=== PATIENT | female | born 1945 | race Caucasian/White ===

== ENCOUNTER 2018-04-16 16:24 | Observation (INO) ==
[2018-04-16] MEDS ORDERED: Bisacodyl 10 MG Supp RECTAL PRN (19:01)
[2018-04-16] MEDS ORDERED: Acetaminophen 325 MG Tablet PO PRN (19:01)
[2018-04-16] MEDS: MethylPREDNISolone Sod Succinate Inj 40 MG/ML Vial IV.PUSH SCH (22:54)
[2018-04-17] MEDS: MethylPREDNISolone Sod Succinate Inj 40 MG/ML Vial IV.PUSH SCH ×4 (01:35→20:15)
[2018-04-17] MEDS ORDERED: Dextrose 50% in Water 50 ML Vial IV.PUSH PRN (05:33)
--- NOTE | 2018-04-17 08:06 | P.HP ---
History of Present Illness Primary Care Physician: UNKNOWN Chief Complaint: chest pain and shortness of breath History of Present Illness: This is a pleasant 72-year-old female patient with a known medical history of diabetes and asthma who presented to the ED with complaints of worsening shortness of breath, wheezing and left-sided chest pain. Patient does not speak [place], son at bedside and assisting with translating, denies need for any translation service. Patient states that over the last week she has been increasing shortness of breath with wheezing, she does have a history of asthma , uses her Ventolin inhaler which did not provide relief of the shortness of breath over the course of the week. She states that 3 days ago she noticed some left-sided chest pain that was characterized as pressure in nature that radiates down her left arm and shoulder. She also admits to some palpitations. She does admit to subjective fevers at home although did not check her temperature. She denies any abdominal pain, nausea, vomiting, diarrhea or dysuria. She denies any significant family medical history of cardiovascular disease. She denies any tobacco abuse. She does have a history of diabetes and on metformin at home. Patient is unaware of when her last stress test was was roughly 5 years ago. At the time of assessment patient's chest pain has improved. ACS ruled out with serial EKGs and serial troponins. Will undergo stress test today. Breathing much improved on 2 L nasal cannula at the present time. - Diagnosis (1) Shortness of breath (2) Chest pain (3) Asthma exacerbation Review of Systems All other systems reviewed negative except as stated in HPI PMFSH - History History Provided By: Patient - Medical History Medical History: Medical History (Last Reviewed 04/17/18 @ 11:18 by Andree Orellana) Asthma Diabetes Hypertension - Surgical History Surgical History: Surgical History (Last Reviewed 04/17/18 @ 11:18 by Andree Orellana) History of cholecystectomy Previous back surgery - Family History Family History: Family History (Last Updated 04/17/18 @ 11:18 by Andree Orellana) Other Family history non-contributory - Social History I have reviewed the patient's Social History: Yes - Tobacco History Second Hand Smoke Exposure: No Tobacco Use In Past 30 Days: No Smoking Status: Never smoker - Alcohol History How Often Do You Have a Drink Containing Alcohol: Never - Substance Use History Substance History: No History of Abuse - Travel History Recent Travel in the [place] Within the Last 8 Weeks: No Recent Travel Out of the Country Within the Last 8 Weeks: No Medications and Allergies Active Medications: Active Medications Acetaminophen (Tylenol) 650 mg PO Q4H PRN PRN Reason: Temp > 100.4 Last Admin: 04/17/18 06:51 Dose: 650 mg Al Hydroxide/Mg Hydroxide (Milk Of Magnesia Liq) 30 ml PO Q12H PRN PRN Reason: Mild Constipation Albuterol (Duoneb Neb (Gera)) 1 ampul NEB Q6HR WHILE AWAKE NEB GERA Last Admin: 04/17/18 07:31 Dose: 1 ampul Albuterol (Duoneb Neb (Prn)) 1 ampul NEB Q2HR NEB PRN PRN Reason: SHORTNESS OF BREATH Last Admin: 04/17/18 01:59 Dose: 1 ampul Bisacodyl (Dulcolax Supp) 10 mg RECTAL DAILY PRN PRN Reason: SEVERE CONSITIPATION Dextrose (D50w Vial) 50 ml IV.PUSH UNSCH PRN PRN Reason: PER HYPOGLYCEMIA PROTOCOL Glucagon (Glucagon Inj) 1 mg OTHER PRN PRN PRN Reason: for Hypoglycemia Protocol Insulin Aspart (Novolog Insulin Correctional Sugar Inj) 0 unit SQ ACHS GERA; Protocol Lactulose (Lactulose Liq) 30 ml PO DAILY PRN PRN Reason: SEVERE CONSITIPATION Metformin HCl (Glucophage) 500 mg PO QPM GERA Methylprednisolone Sodium Succinate (Solumedrol Inj) 40 mg IV.PUSH Q6H GERA Last Admin: 04/17/18 01:35 Dose: 40 mg Montelukast Sodium (Singulair) 10 mg PO QPM GERA Ondansetron HCl (Zofran Inj) 4 mg IV.PUSH Q6H PRN PRN Reason: NAUSEA OR VOMITING Sennosides (Senokot) 17.2 mg PO Q12H PRN PRN Reason: Moderate Constipation Allergies Allergy/AdvReac Type Severity Reaction Status Date / Time No Known Allergies Allergy Verified 04/16/18 16:40 Home Medications Medication Instructions Recorded Confirmed Type albuterol sulfate [Ventolin HFA] 1 puff INHALATION Q6H PRN 04/16/18 04/16/18 History metformin 500 mg PO QPM 04/16/18 04/16/18 History metoprolol succinate 25 mg PO DAILY 04/16/18 04/16/18 History montelukast 10 mg PO QPM 04/16/18 04/16/18 History Exam Vital signs: Vital Signs 04/16/18 22:10 04/16/18 22:31 04/17/18 00:18 Temperature 97.5 F L Pulse Rate 89 87 87 Respiratory Rate 20 18 Blood Pressure 151/67 H Pulse Oximetry 94 L 95 04/17/18 02:00 04/17/18 04:00 04/17/18 07:33 Temperature 96.8 F L Pulse Rate 87 106 H 99 H Respiratory Rate 20 18 16 Blood Pressure 118/72 Pulse Oximetry 91 L 97 Intake & Output 04/16/18 04/17/18 04/17/18 18:59 06:59 18:59 Intake Total 120 / 120 Balance 120 / 120 Weight 76.6 kg Intake: Oral 120 / 120 Other: # Voids 2 Weight On Admission 76.2 kg Narrative: GENERAL: Well-developed, well-nourished patient in [facility]. SKIN: Warm and dry. No rash. HEAD: Normocephalic. Atraumatic. EYES: Pupils equal and round. No scleral icterus. No injection or drainage. ENT: No nasal bleeding or discharge. Mucous membranes pink and moist. NECK: Supple. Trachea midline. CARDIOVASCULAR: Regular rate and rhythm. S1, S2 noted. No murmur appreciated. No chest pain to palpation. RESPIRATORY: No accessory muscle use. Clear to auscultation. Breath sounds equal bilaterally. No wheezing. GASTROINTESTINAL: Abdomen soft, non-tender, nondistended. Normoactive bowel sounds x4. MUSCULOSKELETAL: No obvious deformities. Extremities without clubbing, cyanosis , or edema. NEUROLOGICAL: Awake and alert. No obvious cranial nerve deficits. Motor grossly within normal limits. 5/5 muscle strength in bilateral upper and lower extremities. Normal speech. PSYCHIATRIC: Appropriate mood and affect; insight and judgment normal. Results - Labs CBC & Chem 7: 04/17/18 09:30 04/17/18 09:30 Labs: Laboratory Results - last 24 hr 04/17/18 07:57 POC Glucose 179 H Caprini VTE Risk Assessment Caprini VTE Risk Assessment: Moderate/High Risk (score >= 2) Caprini Risk Assessment Model: Point Value = 1 Point Value = 2 Point Value = 3 Point Value = 5 Age 41-60 Minor surgery BMI > 25 kg/m2 Swollen legs Varicose veins or History of unexplained or recurrent spontaneous Oral contraceptives or hormone replacement Sepsis (< 1 month) Serious lung disease, including pneumonia (< 1 month) Abnormal pulmonary function Acute myocardial infarction Congestive heart failure (< 1 month) History of inflammatory bowel disease Medical patient at bed rest Age 61-74 Arthroscopic surgery Major open surgery (> 45 min) Laparoscopic surgery (> 45 min) Malignancy Confined to bed (> 72 hours) Immobilizing plaster cast Central venous access Age >= 75 History of VTE Family history of VTE Factor V Leiden Prothrombin [id number] Lupus anticoagulant Anticardiolipin antibodies Elevated serum homocysteine Heparin-induced thrombocytopenia Other congenital or acquired thrombophilia Stroke (< 1 month) Elective arthroplasty Hip, pelvis, or leg fracture Acute spinal cord injury (< 1 month) Prophylaxis Regimen: Total Risk Factor Score Risk Level Prophylaxis Regimen 0-1 Low Early ambulation 2 Moderate Order ONE of the following: *Sequential Compression Device (SCD) *Heparin 5000 units SQ BID 3-4 Higher Order ONE of the following medications: *Heparin 5000 units SQ TID *Enoxaparin/Lovenox 40 mg SQ daily (WT < 150 kg, CrCl > 30 mL/min) *Enoxaparin/Lovenox 30 mg SQ daily (WT < 150 kg, CrCl > 10-29 mL/min) *Enoxaparin/Lovenox 30 mg SQ BID (WT < 150 kg, CrCl > 30 mL/min) AND/OR *Sequential Compression Device (SCD) 5 or more Highest Order ONE of the following medications: *Heparin 5000 units SQ TID (Preferred with Epidurals) *Enoxaparin/Lovenox 40 mg SQ daily (WT < 150 kg, CrCl > 30 mL/min) *Enoxaparin/Lovenox 30 mg SQ daily (WT < 150 kg, CrCl > 10-29 mL/min) *Enoxaparin/Lovenox 30 mg SQ BID (WT < 150 kg, CrCl > 30 mL/min) AND *Sequential Compression Device (SCD) Assessment and Plan - Assessment (1) Shortness of breath Code(s): R06.02 - Shortness of breath Status: Acute (2) Chest pain Code(s): R07.9 - Chest pain, unspecified Status: Acute (3) Asthma exacerbation Code(s): J45.901 - Unspecified asthma with (acute) exacerbation Status: Acute - Plan This is a 72-year-old female patient with: Asthma exacerbation -Patient presented with a one-week history of shortness of breath and wheezing. -Patient was given IV steroids supplemental O2 and duo nebs which has improved her symptoms. -Lying in bed on 2 L nasal cannula. Shortness of breath improved. Breathing comfortably. -We will continue IV steroids. Continue duo nebs. -Supplemental O2 as needed to keep O2 sats above 92%. -Continue Ventolin inhaler. -Supportive care. Chest pain, atypical -Patient presents with 3-day history of left-sided chest pain. -Initial troponin flat. Will obtain enzyme. Continue on cardiac panel monitor for any arrhythmias. None overnight. -EKG reviewed showing normal sinus rhythm, controlled heart rate, no ST changes to indicate any ischemia. -Patient will undergo Lexiscan to further rule out any ischemia. -Patient is stable at this time and agreeable with plan. -Further hospitalization will depend on nuclear imaging results as well as improvement in shortness of breath. Type 2 diabetes mellitus, chronic -Accu-Chek before meals at bedtime, sliding scale, cover as needed. -Monitor blood sugar trends. Monitor for hypoglycemia n.p.o. for nuclear test. DVT prophylaxis: SCDs.
[2018-04-17] MEDS: Insulin NovoLOG Aspart Correctional Sugar Inj SQ SCH ×4 (08:21→20:19)
[2018-04-17 10:09] LABS: Baso # (Auto) 0.1 th/mm3 (0.0-0.2); Baso % (Auto) 1.1 % (0.0-2.0); Eos # (Auto) 0.1 th/mm3 (0.0-0.4); Eos % (Auto) 0.7 % (0.0-4.0); Hematocrit 39.4 % (35.0-46.0); Hemoglobin 13.1 gm/dL (11.6-15.3); Lymph # (Auto) 1.1 th/mm3 (1.0-4.8); Mean Corpuscular HGB Conc 33.2 % (32.0-36.0); Mean Corpuscular Hemoglobin 30.9 pg (27.0-34.0); Mean Platelet Volume 8.8 fL (7.0-11.0); Mono # (Auto) 0.1 th/mm3 (0.0-0.9); Mono % (Auto) 1.3 % (0.0-8.0); Neut # (Auto) 9.9 th/mm3 (1.8-7.7); Neut % (Auto) 86.9 % (16.0-70.0); Platelet Count 179 th/mm3 (150-450); Red Blood Count 4.24 mil/mm3 (4.00-5.30); Red Cell Distribution Width 12.4 % (11.6-17.2); White Blood Count 11.3 th/mm3 (4.0-11.0)
[2018-04-17 10:14] LABS: Chloride 104 meq/L (98-107); Sodium 142 meq/L (136-145)
[2018-04-17 10:17] LABS: Anion Gap 10 meq/L (5-15); Calcium 8.8 mg/dL (8.5-10.1); Carbon Dioxide 28.2 meq/L (21.0-32.0); Glucose,Random 197 mg/dL (74-106)
[2018-04-17 10:18] LABS: Blood Urea Nitrogen 13 mg/dL (7-18)
[2018-04-17 10:21] LABS: Glomerular Filtration Rate Greater Than 89 mL/min (>89)
[2018-04-17] MEDS ORDERED: Regadenoson Inj 0.4 MG/5 ML Syringe IV.PUSH ONE (13:23)
--- NOTE | 2018-04-17 14:44 | NM ---
EXAM DATE: 04/17/2018 2:37 PM EDT AGE/SEX: 72 years / Female INDICATIONS:Angina. . Chest pain with dyspnea. CLINICAL DATA: This is the patient's initial encounter. Patient reports that signs and symptoms have been present for 1 day and indicates a pain score of 6/10. MEDICAL/SURGICAL HISTORY: Diabetes mellitus type II. Hypertension. Asthma. Cholecystectomy. COMPARISON: No prior exams available for comparison. DOSE: 8.3 mCi Tc 99m Myoview at rest 25.4 mCi [id number] at stress 0.4 mg Lexiscan STRESS SYMPTOMS: Dyspnea, chest pain and headache. EJECTION FRACTION: > 70 % TECHNIQUE: The patient underwent pharmacologic stress with infusion of prescribed dose. Continuous ECG tracing was monitored during stress. Gated SPECT imaging was performed after stress and conventi onal SPECT imaging was performed at rest. The examination was performed on a SPECT/CT scanner, both attenuation and non-corrected datasets were reviewed. FINDINGS: Distribution: The maximum perfused segment at stress is in the inferior wall. Perfusion Study: The pattern of perfusion at stress is within normal limits. Gated Study: There are intact wall motion and wall thickening without hypokinetic or dyskinetic segm ents. The ejection fraction is calculated at > 70%. RISK CATEGORY: Low (<1% Annual Motality Rate) CONCLUSION: No reversible perfusion defects. No focal wall motion abnormalities. Electronically signed by: Jensen Mcfalrand MD 04/17/2018 2:43 PM EDT
[2018-04-17] MEDS ORDERED: Ketorolac Inj 30 MG/ML (IVP) Vial IV.PUSH PRN (17:24)
[2018-04-17] MEDS ORDERED: Montelukast 10 MG Tablet PO SCH (18:00)
[2018-04-17] MEDS ORDERED: Metoprolol Tartrate 25 MG Tablet PO ONE (20:17)
[2018-04-18] MEDS: MethylPREDNISolone Sod Succinate Inj 40 MG/ML Vial IV.PUSH SCH (01:34)
[2018-04-18 07:43] VITALS: RESP 20
[2018-04-18 07:44] VITALS: O2SAT 94
[2018-04-18 09:00] VITALS: BP 129/72; PULSE 96; TEMP 98.1
--- NOTE | 2018-04-18 09:05 | P.PNIM ---
Subjective Interval history: Follow-up asthma exacerbation chest pain. Patient seen and examined, sitting up in bed comfortably no apparent distress. She states that she feels much improved. Does say she has a residual cough. Chest pain has resolved. CT scan negative. Will discharge home to follow-up with PCP. Vital signs stable. Afebrile. Physical Exam Vital signs: Vital Signs 04/17/18 12:00 04/17/18 15:28 04/17/18 15:53 Temperature 97.9 F 99 F Pulse Rate 107 H 110 H 114 H Respiratory Rate 20 32 H 20 Blood Pressure 119/67 128/73 Pulse Oximetry 96 95 93 L 04/17/18 17:00 04/17/18 18:49 04/17/18 18:50 Temperature Pulse Rate 111 H Respiratory Rate 22 Blood Pressure Pulse Oximetry 95 94 L 04/17/18 20:00 04/17/18 20:08 04/17/18 20:37 Temperature 98.0 F Pulse Rate 125 H 125 H Respiratory Rate Blood Pressure 121/76 Pulse Oximetry 95 04/17/18 23:51 04/18/18 04:00 04/18/18 07:43 Temperature 96.8 F L 98 F Pulse Rate 88 81 111 H Respiratory Rate 18 18 20 Blood Pressure 117/69 137/60 Pulse Oximetry 93 L 95 94 L Intake & Output 04/17/18 04/18/18 04/18/18 19:59 06:59 18:59 Intake Total Output Total Balance Weight Intake: Oral Output: Urine Other: # Voids Narrative: GENERAL: Well-developed, well-nourished patient in [facility]. SKIN: Warm and dry. No rash. HEAD: Normocephalic. Atraumatic. EYES: Pupils equal and round. No scleral icterus. No injection or drainage. ENT: No nasal bleeding or discharge. Mucous membranes pink and moist. NECK: Supple. Trachea midline. CARDIOVASCULAR: Regular rate and rhythm. S1, S2 noted. No murmur appreciated. No chest pain to palpation. RESPIRATORY: No accessory muscle use. Clear to auscultation. Breath sounds equal bilaterally. No wheezing. GASTROINTESTINAL: Abdomen soft, non-tender, nondistended. Normoactive bowel sounds x4. MUSCULOSKELETAL: No obvious deformities. Extremities without clubbing, cyanosis , or edema. NEUROLOGICAL: Awake and alert. No obvious cranial nerve deficits. Motor grossly within normal limits. 5/5 muscle strength in bilateral upper and lower extremities. Normal speech. PSYCHIATRIC: Appropriate mood and affect; insight and judgment normal. Results - Labs CBC & Chem 7: 04/17/18 09:30 04/17/18 09:30 Laboratory Results - last 24 hr 04/17/18 04/17/18 04/17/18 09:30 09:30 11:23 CBC w Diff Auto diff final WBC 11.3 H D RBC 4.24 Hgb 13.1 Hct 39.4 MCV 93.0 MCH 30.9 MCHC 33.2 RDW 12.4 Plt Count 179 MPV 8.8 Neut % (Auto) 86.9 H Lymph % (Auto) 10.0 Cannon % (Auto) 1.3 Eos % (Auto) 0.7 Baso % (Auto) 1.1 Neut # (Auto) 9.9 H Lymph # (Auto) 1.1 Cannon # (Auto) 0.1 Eos # (Auto) 0.1 Baso # (Auto) 0.1 WBC Differential . Differential Comment . Sodium 142 Potassium 4.0 Chloride 104 Carbon Dioxide 28.2 Anion Gap 10 BUN 13 Creatinine 0.62 Estimated GFR Greater than 89 POC Glucose 180 H Random Glucose 197 H Calcium 8.8 Total Creatine Kinase Troponin I 04/17/18 04/17/18 04/17/18 12:06 12:06 16:43 CBC w Diff WBC RBC Hgb Hct MCV MCH MCHC RDW Plt Count MPV Neut % (Auto) Lymph % (Auto) Cannon % (Auto) Eos % (Auto) Baso % (Auto) Neut # (Auto) Lymph # (Auto) Cannon # (Auto) Eos # (Auto) Baso # (Auto) WBC Differential Differential Comment Sodium Potassium Chloride Carbon Dioxide Anion Gap BUN Creatinine Estimated GFR POC Glucose 187 H Random Glucose Calcium Total Creatine Kinase 76 Troponin I Less than 0.02 L 04/17/18 20:08 CBC w Diff WBC RBC Hgb Hct MCV MCH MCHC RDW Plt Count MPV Neut % (Auto) Lymph % (Auto) Cannon % (Auto) Eos % (Auto) Baso % (Auto) Neut # (Auto) Lymph # (Auto) Cannon # (Auto) Eos # (Auto) Baso # (Auto) WBC Differential Differential Comment Sodium Potassium Chloride Carbon Dioxide Anion Gap BUN Creatinine Estimated GFR POC Glucose 216 H Random Glucose Calcium Total Creatine Kinase Troponin I - Imaging Impressions Myocardial Perfusion Scan Nuc Med 04/17/18 00:00 CONCLUSION: No reversible perfusion defects. No focal wall motion abnormalities. Assessment and Plan - Assessment (1) Shortness of breath Code(s): R06.02 - Shortness of breath Status: Acute (2) Chest pain Code(s): R07.9 - Chest pain, unspecified Status: Acute (3) Asthma exacerbation Code(s): J45.901 - Unspecified asthma with (acute) exacerbation Status: Acute - Plan This is a 72-year-old female patient with: Asthma exacerbation, resolved. -Patient presented with a one-week history of shortness of breath and wheezing. -Patient was given IV steroids supplemental O2 and duo nebs which has improved her symptoms. -On room air. Shortness of breath improved. Breathing comfortably. -Continue p.o. steroids on discharge. -Continue Ventolin inhaler. Chest pain, atypical. Resolved. -Patient presents with 3-day history of left-sided chest pain. -Troponin trend flat. Continue on cardiac monitor tech for any arrhythmias. None overnight. -EKG reviewed showing normal sinus rhythm, controlled heart rate, no ST changes to indicate any ischemia. -Patient underwent a Lexiscan, no ischemia. Adequate EF. -She will be discharged home to follow-up with PCP. Chest pain was likely secondary to asthma exacerbation and coughing. Type 2 diabetes mellitus, chronic. Stable. -Continue home metformin. DC home. Follow-up PCP. Prescriptions as written per discharge plan. Activity as tolerated. Heart healthy diet.
--- NOTE | 2018-04-18 10:12 | ECG ---
Date Performed: 04/17/2018 Time Performed: 12:15:07 PTAGE: 72 years EKG: SINUS TACHYCARDIA ABNORMAL RHYTHM ECG No significant change NO PREVIOUS TRACING DOCTOR: Luis Carlos Bonilla Interpretating Date/Time 04/18/2018 10:10:42
--- NOTE | 2018-04-18 10:15 | TR ---
Date Performed: 04/17/2018 Time Performed: 13:52:03 DOCTOR: Luis Carlos Bonilla DRUG LIST: CLINICAL HISTORY: REASON FOR TEST: Chest pain REASON FOR ENDING: OBSERVATION: CONCLUSION: Lexiscan stress test was performed under standard four minute protocol. Radionuclide was injected one minute prior to ending the test. No electrocardiographic abormalities were present to suggest ischemia. Nuclear imaging and interpretation are pending. COMMENTS:
--- NOTE | 2018-04-19 08:31 | ED ---
HPI General Source: patient and family Mode of arrival: ambulatory History of Present Illness Complaint: Reports shortness of breath Onset (ago): day(s) (3) Severity: moderate Consistency/Duration: constant Relieving factors: nothing Exacerbating factors: exertion Known history of: Reports asthma Associated symptoms: Reports denies other symptoms Treatment prior to arrival: Reports bronchodilator Related Data Home Medications Medication Instructions Recorded Confirmed albuterol sulfate [Ventolin HFA] 1 puff INHALATION Q6H PRN 04/16/18 04/16/18 metformin 500 mg PO QPM 04/16/18 04/16/18 metoprolol succinate 25 mg PO DAILY 04/16/18 04/16/18 montelukast 10 mg PO QPM 04/16/18 04/16/18 Previous Rx's Medication Instructions Recorded guaifenesin [Mucinex] 600 mg PO Q12H 5 Days #10 tab 04/18/18 prednisone 20 mg PO DAILY 5 Days #5 tab 04/18/18 Allergies Allergy/AdvReac Type Severity Reaction Status Date / Time No Known Allergies Allergy Verified 04/16/18 16:40 Review of Systems ROS: all other systems reviewed are negative Respiratory Reports system reviewed and no additional complaints, except as docu PMFSH History History Provided By: Patient and Family Member Family History Family History Other Family history non-contributory Social History Social History Substance History: No History of Abuse Second Hand Smoke Exposure: No Smoking Status: Never smoker How Often Do You Have a Drink Containing Alcohol: Never Recent Travel in [place] within the Last 8 Weeks: No Recent Out of Country Travel within the Last 8 Weeks: No Exam Narrative Exam Narrative: Patient presents complaining of worsening shortness of breath of the last couple of days has a known history of asthma is in mild respiratory distress but nontoxic in appearance GENERAL: Mild distress as listed above SKIN: Focused skin assessment warm/dry. HEAD: Atraumatic. Normocephalic. EYES: Pupils equal and round. No scleral icterus. No injection or drainage. ENT: No nasal bleeding or discharge. Mucous membranes pink and moist. NECK: Trachea midline. No JVD. CARDIOVASCULAR: Regular rate and rhythm. No murmur appreciated. RESPIRATORY: Decreased breath sounds bilaterally with widespread wheezing all lung [place]. GASTROINTESTINAL: Abdomen soft, non-tender, nondistended. Hepatic and splenic margins not palpable. MUSCULOSKELETAL: No obvious deformities. No clubbing. No cyanosis. No edema. NEUROLOGICAL: Awake and alert. No obvious cranial nerve deficits. Motor grossly within normal limits. Normal speech. PSYCHIATRIC: Appropriate mood and affect; insight and judgment normal. Course Initial Documented Vital Signs Pulse Rate 89 04/16/18 22:10 Respiratory Rate 20 04/16/18 22:10 Pulse Oximetry 94 L 04/16/18 22:10 Last Documented Vital Signs Temperature 98.1 F 04/18/18 08:00 Pulse Rate 96 H 04/18/18 08:00 Respiratory Rate 20 04/18/18 07:43 Blood Pressure 129/72 04/18/18 08:00 Pulse Oximetry 94 L 04/18/18 08:00 Critical Care Time Critical Care Time: Yes Total Critical Care Time: 30 Attestation: I personally performed 30 minutes of critical care time with direct patient care chart review of data review consultation with accepting transferring physician and direct interaction with patient's family. Medical Decision Making MDM Narrative Medical decision making narrative: Discussed with Dr. Tinoco will accept and transferred for admission Medical Screen Exam Complete: Yes Emergency Medical Condition: Yes Lab Data Lab results reviewed: Yes I reviewed the patient's lab results. Lab results narrative: Mild leukocytosis otherwise unremarkable Result diagrams: 04/17/18 09:30 04/17/18 09:30 Lab Results 04/17/18 04/17/18 04/17/18 Range/Units 07:57 09:30 09:30 CBC w Diff Auto diff final WBC 11.3 H D (4.0-11.0) th/mm3 RBC 4.24 (4.00-5.30) mil/mm3 Hgb 13.1 (11.6-15.3) gm/dL Hct 39.4 (35.0-46.0) % MCV 93.0 (80.0-100.0) fL MCH 30.9 (27.0-34.0) pg MCHC 33.2 (32.0-36.0) % RDW 12.4 (11.6-17.2) % Plt Count 179 (150-450) th/mm3 MPV 8.8 (7.0-11.0) fL Neut % (Auto) 86.9 H (16.0-70.0) % Lymph % (Auto) 10.0 (9.0-44.0) % Moore % (Auto) 1.3 (0.0-8.0) % Eos % (Auto) 0.7 (0.0-4.0) % Baso % (Auto) 1.1 (0.0-2.0) % Neut # (Auto) 9.9 H (1.8-7.7) th/mm3 Lymph # (Auto) 1.1 (1.0-4.8) th/mm3 Moore # (Auto) 0.1 (0.0-0.9) th/mm3 Eos # (Auto) 0.1 (0.0-0.4) th/mm3 Baso # (Auto) 0.1 (0.0-0.2) th/mm3 WBC Differential . Differential Comment . Sodium 142 (136-145) meq/L Potassium 4.0 (3.5-5.1) meq/L Chloride 104 (98-107) meq/L Carbon Dioxide 28.2 (21.0-32.0) meq/L Anion Gap 10 (5-15) meq/L BUN 13 (7-18) mg/dL Creatinine 0.62 (0.50-1.00) mg/dL Estimated GFR Greater than 89 (>89) mL/min POC Glucose 179 H (68-110) mg/dl Random Glucose 197 H (74-106) mg/dL Calcium 8.8 (8.5-10.1) mg/dL Total Creatine Kinase (26-192) U/L Troponin I (0.02-0.05) ng/mL 04/17/18 04/17/18 04/17/18 Range/Units 11:23 12:06 12:06 CBC w Diff WBC (4.0-11.0) th/mm3 RBC (4.00-5.30) mil/mm3 Hgb (11.6-15.3) gm/dL Hct (35.0-46.0) % MCV (80.0-100.0) fL MCH (27.0-34.0) pg MCHC (32.0-36.0) % RDW (11.6-17.2) % Plt Count (150-450) th/mm3 MPV (7.0-11.0) fL Neut % (Auto) (16.0-70.0) % Lymph % (Auto) (9.0-44.0) % Moore % (Auto) (0.0-8.0) % Eos % (Auto) (0.0-4.0) % Baso % (Auto) (0.0-2.0) % Neut # (Auto) (1.8-7.7) th/mm3 Lymph # (Auto) (1.0-4.8) th/mm3 Moore # (Auto) (0.0-0.9) th/mm3 Eos # (Auto) (0.0-0.4) th/mm3 Baso # (Auto) (0.0-0.2) th/mm3 WBC Differential Differential Comment Sodium (136-145) meq/L Potassium (3.5-5.1) meq/L Chloride (98-107) meq/L Carbon Dioxide (21.0-32.0) meq/L Anion Gap (5-15) meq/L BUN (7-18) mg/dL Creatinine (0.50-1.00) mg/dL Estimated GFR (>89) mL/min POC Glucose 180 H (68-110) mg/dl Random Glucose (74-106) mg/dL Calcium (8.5-10.1) mg/dL Total Creatine Kinase 76 (26-192) U/L Troponin I Less than 0.02 L (0.02-0.05) ng/mL 04/17/18 04/17/18 Range/Units 16:43 20:08 CBC w Diff WBC (4.0-11.0) th/mm3 RBC (4.00-5.30) mil/mm3 Hgb (11.6-15.3) gm/dL Hct (35.0-46.0) % MCV (80.0-100.0) fL MCH (27.0-34.0) pg MCHC (32.0-36.0) % RDW (11.6-17.2) % Plt Count (150-450) th/mm3 MPV (7.0-11.0) fL Neut % (Auto) (16.0-70.0) % Lymph % (Auto) (9.0-44.0) % Moore % (Auto) (0.0-8.0) % Eos % (Auto) (0.0-4.0) % Baso % (Auto) (0.0-2.0) % Neut # (Auto) (1.8-7.7) th/mm3 Lymph # (Auto) (1.0-4.8) th/mm3 Moore # (Auto) (0.0-0.9) th/mm3 Eos # (Auto) (0.0-0.4) th/mm3 Baso # (Auto) (0.0-0.2) th/mm3 WBC Differential Differential Comment Sodium (136-145) meq/L Potassium (3.5-5.1) meq/L Chloride (98-107) meq/L Carbon Dioxide (21.0-32.0) meq/L Anion Gap (5-15) meq/L BUN (7-18) mg/dL Creatinine (0.50-1.00) mg/dL Estimated GFR (>89) mL/min POC Glucose 187 H 216 H (68-110) mg/dl Random Glucose (74-106) mg/dL Calcium (8.5-10.1) mg/dL Total Creatine Kinase (26-192) U/L Troponin I (0.02-0.05) ng/mL Imaging Data Attestation: I personally reviewed and interpreted this imaging study as follows : My impression: No infiltrate noted on the chest x-ray Radiologist's impression: Myocardial Perfusion Scan Nuc Med 04/17/18 00:00 CONCLUSION: No reversible perfusion defects. No focal wall motion abnormalities. Discharge Plan Discharge Disposition Patient Disposition: Transfer to [facility] Discharge Condition Condition: Stable Discharge Order Discharge Orders: Discharge Order (Routine); Ordered 04/18/18 Ordered By: Andree Orellana Discharge Details Diagnosis: Asthma exacerbation Physicians Team ED Provider: Gerardo Natarajan Primary Care Provider: UNKNOWN, Attending Provider: Rosales Tinoco Status ED Status: Admitted Observation Patient
== END 2018-04-18 09:11 | disposition home or self-care (01) ==
LOC: PHEDDLT 16:24 → PH3 16:24
PROVIDERS: ADMIT Internal Medicine; ATTEND Internal Medicine